=== PATIENT | male | born 1995 | race African-American/Black ===

== ENCOUNTER 2017-10-21 00:42 | Emergency (ER) | payer MEDICAID | END 2017-10-21 02:05 | disposition home or self-care (01) | LOC: D.ER 00:42 | DX: J06.9 Acute upper respiratory infection, unspecified (principal); J02.9 Acute pharyngitis, unspecified; R09.89 Other specified symptoms and signs involving the circulatory and respiratory systems ==

== ENCOUNTER 2017-11-19 05:09 | Emergency (ER) | payer MEDICAID ==
[2017-11-19 05:39] LABS: BASOPHILS 0.3 % (0-2); EOSINOPHILS 10.5 % (0-7); HEMOGLOBIN 14.6 g/dL (13.5-17.5); LYMPHOCYTES 31.9 % (15-50); MCH 32.2 pg (26.0-34.0); MCV 94.7 fL (80.0-100.0); MEAN PLATELET VOLUME 10.7 fL (7.4-10.4); MONOCYTES 15.9 % (2-11); NEUTROPHILS 41.4 % (40-80); PLATELET COUNT 231 10x3/uL (130-400); RBC 4.54 10x6/uL (4.20-6.10); RDW 11.6 % (11.5-14.5); WBC 5.9 10x3/uL (4.8-10.8)
== END 2017-11-19 06:35 | disposition home or self-care (01) ==
LOC: D.ER 05:09
PROVIDERS: Emergency Medicine
DX: R10.9 Unspecified abdominal pain (principal); F17.200 Nicotine dependence, unspecified, uncomplicated